=== PATIENT | male | born 1985 | race African-American/Black ===

== ENCOUNTER 2021-10-16 11:17 | Emergency (ER) | payer MEDICAID ==
[~2021-10-16] VITALS: Ht 172.7 cm; Wt 78.0 kg
[2021-10-16] MEDS ORDERED: ASPIRIN 81MG TABLET PO ONE (12:00)
[2021-10-16] MEDS ORDERED: NITROGLYCERIN 0.4MG TABLET SL SL PRN (12:00)
[2021-10-16 12:25] LABS: EOSINOPHILS % 1.7 % (0.0-5.0); HEMATOCRIT. 46.5 % (42.0-52.0); HEMOGLOBIN. 15.8 g/dL (14.0-18.0); MEAN CORPUSCULAR HEMOGLOBIN 32.9 pg (28.0-32.0); MEAN CORPUSCULAR VOLUME 96.5 fL (80.0-94.0); MONOCYTES % 8.7 % (2.0-8.0); NEUTROPHILS % 54.6 % (40.0-76.0); PLATELET 219 x1000/uL (130-400); RED BLOOD CELL COUNT 4.82 mill/uL (4.7-6.1); RED CELL DISTRIBUTION WIDTH 13.7 % (11.6-14.6)
[2021-10-16 12:32] LABS: CHLORIDE 107 mEq/L (98-107)
[2021-10-16 12:41] LABS: D-DIMER 0.3 mg/L FEU (<0.50); PARTIAL THROMBOPLASTIN TIME 28.4 sec (23.4-31.0); PROTHROMBIN TIME 10.7 sec (9.6-11.0)
[2021-10-16] MEDS ORDERED: ENOXAPARIN 80MG/0.8ML SYR SUBCUT ONE (13:30)
[2021-10-16] MEDS ORDERED: IOHEXOL-350 100 ML BOTTLE ONE (15:22)
[2021-10-16 20:00] VITALS: BP 131/79
== END 2021-10-16 20:54 | disposition home or self-care (01) ==
LOC: ER 11:17 → EDBEDREQ 13:24 → EDBEDREQTM 13:24 → ER 20:54 → CANBEDREQ 22:33
DX: R07.89 Other chest pain (principal); Z86.711 Personal history of pulmonary embolism; I10 Essential (primary) hypertension; F17.210 Nicotine dependence, cigarettes, uncomplicated; Z86.16 Personal history of COVID-19; Z87.81 Personal history of (healed) traumatic fracture; Z20.822 Contact with and (suspected) exposure to COVID-19; Z79.01 Long term (current) use of anticoagulants
CPT/HCPCS: 36415; 71045; 71275; 80053; 83880; 84484; 85025; 85379; 85610; 85730; 87426; 93005; 93970; 96372; 99285; J1650; Q9967

== ENCOUNTER 2021-11-17 21:26 | Emergency (ER) | payer MEDICAID ==
[~2021-11-17] VITALS: Ht 170.2 cm; Wt 102.0 kg
[2021-11-17 21:51] VITALS: BP 120/78
[2021-11-17] MEDS ORDERED: ASPIRIN 81MG TABLET PO ONE (22:45)
[2021-11-17 23:07] LABS: BASOPHILS % 0.7 % (0.0-2.0); EOSINOPHILS % 1.9 % (0.0-5.0); HEMATOCRIT. 41.2 % (42.0-52.0); HEMOGLOBIN. 14.3 g/dL (14.0-18.0); LYMPHOCYTES % 38.5 % (20.0-50.0); MEAN CORPUSCULAR HEMOGLOBIN 33.1 pg (28.0-32.0); MEAN CORPUSCULAR VOLUME 95.3 fL (80.0-94.0); MONOCYTES % 7.9 % (2.0-8.0); PLATELET 208 x1000/uL (130-400); RED BLOOD CELL COUNT 4.32 mill/uL (4.7-6.1)
[2021-11-17 23:14] LABS: CHLORIDE 108 mEq/L (98-107)
[2021-11-18] MEDS ORDERED: IOHEXOL-350 100 ML BOTTLE ONE (01:39)
[2021-11-18] MEDS ORDERED: TOPUD PO (06:57)
== END 2021-11-18 01:56 | disposition home or self-care (01) ==
LOC: ER 21:26
DX: R07.89 Other chest pain (principal); D18.00 Hemangioma unspecified site; R06.02 Shortness of breath; F17.290 Nicotine dependence, other tobacco product, uncomplicated
CPT/HCPCS: 36415; 71045; 71275; 80053; 83880; 84484; 85025; 85379; 93005; 99285; 99406; Q9967

== ENCOUNTER 2021-11-18 05:20 | Emergency (ER) | payer MEDICAID ==
[~2021-11-18] VITALS: Ht 170.2 cm; Wt 102.0 kg
[2021-11-18 05:21] VITALS: BP 136/93
[2021-11-18 06:05] LABS: BASOPHILS % 0.6 % (0.0-2.0); EOSINOPHILS % 2.4 % (0.0-5.0); HEMATOCRIT. 43.4 % (42.0-52.0); HEMOGLOBIN. 15.1 g/dL (14.0-18.0); MEAN CORPUSCULAR HEMOGLOBIN 33.3 pg (28.0-32.0); MEAN CORPUSCULAR VOLUME 95.7 fL (80.0-94.0); MEAN PLATELET VOLUME 7.9 fl (7.4-10.4); MONOCYTES % 8.8 % (2.0-8.0); NEUTROPHILS % 52.2 % (40.0-76.0); PLATELET 215 x1000/uL (130-400); RED BLOOD CELL COUNT 4.54 mill/uL (4.7-6.1); RED CELL DISTRIBUTION WIDTH 14.1 % (11.6-14.6)
[2021-11-18 06:09] LABS: CHLORIDE 108 mEq/L (98-107)
[2021-11-18] MEDS ORDERED: TOPUD PO (06:57)
[2021-11-18] MEDS ORDERED: ACETAMINOPHEN 325MG TABLET PO ONE (07:00)
== END 2021-11-18 07:09 | disposition home or self-care (01) ==
LOC: ER 05:20
DX: R07.89 Other chest pain (principal)
CPT/HCPCS: 36415; 80053; 84484; 85025; 93005; 99284

== ENCOUNTER 2023-08-20 18:25 | Emergency (ER) | payer MEDICAID ==
[~2023-08-20] VITALS: Ht 172.7 cm; Wt 100.0 kg
[~2023-08-20 18:25] MED LIST: TOPUD PO
[2023-08-20 18:34] VITALS: BP 125/89; PULSE 74; RESP 16; TEMP 98.9; O2SAT 100
== END 2023-08-20 22:00 | disposition left against medical advice (07) ==
LOC: ER 18:25
DX: Z53.21 Procedure and treatment not carried out due to patient leaving prior to being seen by health care provider (principal)
CPT/HCPCS: 93005; 99281

== ENCOUNTER 2023-09-03 02:56 | Emergency (ER) | payer MEDICAID ==
[~2023-09-03] VITALS: Ht 172.7 cm; Wt 99.0 kg
[2023-09-03 03:13] VITALS: BP 140/98; PULSE 82; RESP 14; TEMP 98.5; O2SAT 100
[2023-09-03 05:43] LABS: BASOPHILS % 0.7 % (0.0-2.0); EOSINOPHILS % 2.9 % (0.0-5.0); HEMATOCRIT. 42.2 % (42.0-52.0); HEMOGLOBIN. 13.8 g/dL (14.0-18.0); LYMPHOCYTES % 33.6 % (20.0-50.0); MEAN CORPUSCULAR HEMOGLOBIN 32.3 pg (28.0-32.0); MEAN CORPUSCULAR HGB CONC 32.6 g/dL (31.0-37.0); MEAN PLATELET VOLUME 8.1 fl (7.4-10.4); MONOCYTES % 7.7 % (2.0-8.0); NEUTROPHILS % 55.1 % (40.0-76.0); PLATELET 257 x1000/uL (130-400); RED BLOOD CELL COUNT 4.26 mill/uL (4.7-6.1); RED CELL DISTRIBUTION WIDTH 14.8 % (11.6-14.6); WHITE BLOOD COUNT 7.8 x1000/uL (4.5-11.0)
[2023-09-03 05:59] LABS: CHLORIDE 109 mEq/L (98-107); POTASSIUM 3.8 mEq/L (3.5-5.1); SODIUM 140 mEq/L (136-145)
[2023-09-03 06:00] LABS: TROPONIN I HIGH SENSITIVITY < 4 ng/L (3.0-53)
[2023-09-03 06:01] LABS: ALANINE AMINOTRANSFERASE 11 IU/L (10-49); ALBUMIN 3.7 g/dL (3.2-4.8); ASPARTATE AMINOTRANSFERASE 16 IU/L (<34)
[2023-09-03] MEDS ORDERED: IOHEXOL-350 100 ML BOTTLE ONE (06:45)
[2023-09-03 07:14] LABS: BILIRUBIN TOTAL 0.3 mg/dL (0.1-1.0); CALCIUM 8.3 mg/dL (8.7-10.4); CARBON DIOXIDE 20 mEq/L (21-32); CREATININE 0.9 mg/dL (0.6-1.3); GLUCOSE 98 mg/dL (70-105); PROTEIN TOTAL 6.5 g/dL (6.0-8.3); UREA NITROGEN BLOOD 15 mg/dL (9-23)
== END 2023-09-03 11:35 | disposition home or self-care (01) ==
LOC: ER 02:56
DX: R07.89 Other chest pain (principal); I10 Essential (primary) hypertension
CPT/HCPCS: 80053; 85025; 85379; 84484; 36415; 93971; 71045; 71275; 93005; 99285; Q9967; Z7610